=== PATIENT | female | born 1980 | race Asian ===

== ENCOUNTER 2024-06-15 06:33 | Day surgery (SDC) | payer OTHER, SELFPAY | END 2024-06-15 12:29 | disposition home or self-care (01) | LOC: GI 06:33 | PROVIDERS: ATTENDING PHYSICIAN Internal Medicine Gastroenterology; FAMILY PHYSICIAN Family Medicine | DX: K62.5 Hemorrhage of anus and rectum (principal); K64.0 First degree hemorrhoids; K62.89 Other specified diseases of anus and rectum; K64.4 Residual hemorrhoidal skin tags; K63.3 Ulcer of intestine; R14.0 Abdominal distension (gaseous); R11.2 Nausea with vomiting, unspecified; K51.40 Inflammatory polyps of colon without complications; K52.9 Noninfective gastroenteritis and colitis, unspecified; K29.50 Unspecified chronic gastritis without bleeding | CPT/HCPCS: 45385; 45380; 43239; 88305; 88342 ==